=== PATIENT | female | born 1940 | race Asian ===

== ENCOUNTER 2016-11-02 07:50 | Emergency (ER) | payer MEDICARE, OTHER ==
[~2016-11-02] VITALS: Wt 71.0 kg
[2016-11-02] MEDS ORDERED: CIPR7.5D4 BOTH EARS (08:14)
--- NOTE | 2016-11-02 08:23 | ERA ---
ER Documentation Chief Complaint Date/Time DATE: 11/02/16 TIME: 08:19 Chief Complaint NATTY THROAT AND R EAR PAIN X 15 DAYS HPI 76-year-old female complains of pain near the right ear for the past 6 days. Patient has a history of diabetes mellitus. Patient complains of ear ache worse when the ear is moved. Patient has not done anything at this point to relieve the symptoms. Patient denies any relieving factors. Patient says that the pain does get mildly worse when swallowing. ROS All systems reviewed and are negative except as per history of present illness. Medications Home Meds Active Scripts Ciprofloxacin Hcl/Dexameth (Ciprodex Otic Suspension) 7.5 Ml Drops.susp, 4 DROP BOTH EARS BID for 7 Days, EA Prov:EDNA SALDANA PA-C 11/02/16 PMhx/Soc History of Surgery: No Anesthesia Reaction: No Hx Neurological Disorder: No Hx Respiratory Disorders: No Hx Cardiac Disorders: No Hx Psychiatric Problems: No Hx Miscellaneous Medical Probl: No Hx Alcohol Use: No Hx Substance Use: No Hx Tobacco Use: No Smoking Status: Never smoker Physical Exam Vitals Vital Signs Date Time Temp Pulse Resp B/P Pulse Ox O2 Delivery O2 Flow Rate FiO2 11/02/16 07:57 98.6 85 18 146/85 99 Physical Exam Const: Well-appearing 76-year-old female. Head: Atraumatic Eyes: Bilateral injected sclera. ENT: Normal External Ears, Nose and Mouth. Large posterior tongue papilla. Neck: Full range of motion..~ No meningismus. Resp: Clear to auscultation bilaterally Cardio: Regular rate and rhythm, no murmurs Abd: Soft, non tender, non distended. Normal bowel sounds Skin: No petechiae or rashes Back: No midline or flank tenderness Ext: No cyanosis, or edema Neur: Awake and alert Psych: Normal Mood and Affect Procedures/MDM Patient is a 76-year-old female with a history of diabetes mellitus. Patient has right ear pain that is more tender to palpation. The canal is erythematous and edematous. Left ear exam is unremarkable. Patient denies any foreign bodies or liquids getting into the ear. Patient has no tenderness behind the ear or below the ear. At this time I have a low suspicion for malignant otitis externa. Patient is diabetic as well given strict return precautions as well as advised her to follow-up with us in the next 1 day and with her primary care provider in the next 1-3 days. Departure Diagnosis: Primary Impression: Otitis externa of right ear Qualified Code: H60.391 - Other infective acute otitis externa of right ear Condition: Stable Additional Instructions: Follow up with your PCP within the next 1-3 days for a more thorough evaluation and a possible referral to a specialist. Return the the emergency department immediately if symptoms worsen or change. If you have any questions regarding medications, ask your pharmacist or us before you leave. If any adverse reactions occur while taking your medications, discontinue the treatment and return to the emergency department immediately. Take your medications as directed, and complete the entire course of treatment. EDNA SALDANA PA-C Nov 02, 2016 08:23
== END 2016-11-02 08:32 | disposition home or self-care (01) ==
LOC: FTE 07:50
DX: H60.391 Other infective otitis externa, right ear (principal)
CPT/HCPCS: 99283